=== PATIENT | female | born 1960 | race Caucasian/White ===

== ENCOUNTER 2019-01-22 08:39 | Day surgery (SDC) | payer BC ==
[2019-01-08 11:49] VITALS: BMI 30.4
[2019-01-22] MEDS ORDERED: PROPOFOL 20 ML ONE ×2 (10:29)
[2019-01-22] MEDS ORDERED: LIDOCAINE HCL/PF 2% SDV 5ML VIAL ONE (10:29)
[2019-01-22 11:50] VITALS: TEMP 97.6
[2019-01-22 11:54] VITALS: BP 115/69; PULSE 68
== END 2019-01-22 11:45 | disposition home or self-care (01) ==
LOC: FASU-ENDO 08:39
PROVIDERS: ATTEND Internal Medicine Gastroenterology
PROC: 0DJD8ZZ Inspection of Lower Intestinal Tract, Via Natural or Artificial Opening Endoscopic (ICD-10-PCS; principal; 2019-01-22 10:46)
DX: Z12.11 Encounter for screening for malignant neoplasm of colon (principal); K64.0 First degree hemorrhoids

== ENCOUNTER 2022-04-05 09:35 | Day surgery (SDC) | payer BC ==
[2022-04-03 12:51] VITALS: BMI 33.5
[2022-04-05 13:27] VITALS: BP 110/60; PULSE 70; TEMP 98
== END 2022-04-05 13:50 | disposition home or self-care (01) ==
LOC: FASU-ENDO 09:35
PROVIDERS: ATTEND Internal Medicine Gastroenterology
PROC: 0DB68ZX Excision of Stomach, Via Natural or Artificial Opening Endoscopic, Diagnostic (ICD-10-PCS; 2022-04-05)
PROC: 0DB48ZX Excision of Esophagogastric Junction, Via Natural or Artificial Opening Endoscopic, Diagnostic (ICD-10-PCS; 2022-04-05)
PROC: 0DB98ZX Excision of Duodenum, Via Natural or Artificial Opening Endoscopic, Diagnostic (ICD-10-PCS; principal; 2022-04-05 12:53)
DX: K29.50 Unspecified chronic gastritis without bleeding (principal); K21.00 Gastro-esophageal reflux disease with esophagitis, without bleeding; R10.13 Epigastric pain
CPT/HCPCS: 88305-TC; 88342-TC

== ENCOUNTER 2024-04-01 07:44 | Day surgery (SDC) | payer BC ==
[2024-03-31 10:05] VITALS: BMI 36.5
[2024-04-01 08:04] VITALS: RESP 18
[2024-04-01 09:33] VITALS: TEMP 97.5
[2024-04-01 10:01] VITALS: BP 104/50; PULSE 74
== END 2024-04-01 10:01 | disposition home or self-care (01) ==
LOC: FASU-ENDO 07:44
PROVIDERS: ATTEND Internal Medicine Gastroenterology
PROC: 0DJD8ZZ Inspection of Lower Intestinal Tract, Via Natural or Artificial Opening Endoscopic (ICD-10-PCS; principal; 2024-04-01 09:10)
DX: Z12.11 Encounter for screening for malignant neoplasm of colon (principal); K57.30 Diverticulosis of large intestine without perforation or abscess without bleeding; K64.1 Second degree hemorrhoids; Z86.010 Personal history of colon polyps

== ENCOUNTER 2024-04-28 14:17 | Emergency (ER) | payer OTHER, BC ==
[2024-04-28 14:40] VITALS: TEMP 98.2; BMI 36.3
[2024-04-28] MEDS ORDERED: ACETAMINOPHEN 500 MG TABLET (FP) ONE (14:45)
[2024-04-28] MEDS: ACETAMINOPHEN 500 MG TABLET (FP) PO ONE (14:45)
[2024-04-28 18:19] VITALS: BP 142/65; PULSE 58; RESP 15
== END 2024-04-28 18:24 | disposition home or self-care (01) ==
LOC: FER 14:17
DX: R51.9 Headache, unspecified (principal); R42 Dizziness and giddiness; J34.89 Other specified disorders of nose and nasal sinuses; W21.02XA Struck by soccer ball, initial encounter
CPT/HCPCS: 70450-TC; 70486-TC; 99284-25